=== PATIENT | male | born 1935 | race African-American/Black ===

== ENCOUNTER 2018-04-30 18:20 | Emergency (ER) | payer OTHER, MEDICARE ==
[~2018-04-30] VITALS: Ht 172.7 cm; Wt 68.0 kg
[2018-04-30 18:31] VITALS: BP 160/88
== END 2018-04-30 20:32 | disposition admitted as inpatient to this hospital (09) ==
LOC: ERH 18:20
DX: W19.XXXA Unspecified fall, initial encounter (principal)